=== PATIENT | male | born 1955 | race Caucasian/White ===

== ENCOUNTER → 2022-02-28 | Outpatient (REF) | payer OTHER | LOC: M LAB REF 17:30 | PROVIDERS: ATTEND Ophthalmology | DX: L72.0 Epidermal cyst (principal) ==

== ENCOUNTER 2023-03-04 08:10 | Day surgery (SDC) | payer MEDICARE ==
[~2023-03-04] VITALS: Ht 170.2 cm; Wt 82.1 kg
[~2023-03-04 08:10] MED LIST: GABA-282 PO; LOSA50TA28 PO; NS 1,000 ML IV ONE; PANT40TA29 PO; SIMV10TA21 PO; SUCR1TAB56 PO
[2023-03-04] MEDS ORDERED: ECOT81TA5 PO (08:26)
[2023-03-04] MEDS ORDERED: propofoL 200 MG/20 ML VIAL As Ordered ONE ×2 (08:45→08:50)
[2023-03-04 09:40] VITALS: BP 117/81
== END 2023-03-04 09:51 | disposition home or self-care (01) ==
LOC: M OPP 08:10
PROVIDERS: ATTEND Internal Medicine Gastroenterology
DX: Z12.11 Encounter for screening for malignant neoplasm of colon (principal); D12.3 Benign neoplasm of transverse colon; K64.0 First degree hemorrhoids; K22.89 Other specified disease of esophagus; Z79.02 Long term (current) use of antithrombotics/antiplatelets; Z79.1 Long term (current) use of non-steroidal anti-inflammatories (NSAID); Z79.82 Long term (current) use of aspirin; Z79.891 Long term (current) use of opiate analgesic; Z79.899 Other long term (current) drug therapy

== ENCOUNTER → 2023-05-29 | Outpatient (CLI) | payer MEDICARE ==
[~2023-05-29] MED LIST changes: +ECOT81TA5 PO; -NS 1,000 ML IV ONE
== END ==
LOC: M RAD 08:36
PROVIDERS: ATTEND Internal Medicine Gastroenterology
DX: R12 Heartburn (principal)

== ENCOUNTER → 2023-07-13 | Outpatient (CLI) | payer MEDICARE | LOC: M RAD 08:13 | PROVIDERS: ATTEND Internal Medicine Gastroenterology | DX: R12 Heartburn (principal) | CPT/HCPCS: 78264; A9541 ==